=== PATIENT | female | born 1975 | race Asian ===

== ENCOUNTER 2017-03-12 11:51 | Inpatient (IN) | payer MEDICAID ==
[~2017-03-12] VITALS: Ht 165.1 cm; Wt 77.6 kg
[~2017-03-12 11:51] MED LIST: METF10002 PO
[2017-03-12] MEDS ORDERED: KETOROLAC 30MG/ML VIAL IV ONE (12:45)
[2017-03-12 13:01] LABS: BASOPHILS % 0.7 % (0.0-2.0); EOSINOPHILS % 1.9 % (0.0-5.0); HEMATOCRIT. 35.4 % (36.0-48.0); HEMOGLOBIN. 11.5 g/dL (12.0-16.0); LYMPHOCYTES % 18.5 % (20.0-50.0); MEAN CORPUSCULAR HEMOGLOBIN 19.1 pg (28.0-32.0); MEAN CORPUSCULAR VOLUME 58.6 fL (81.0-99.0); MEAN PLATELET VOLUME 9.5 fl (7.4-10.4); MONOCYTES % 6.9 % (2.0-8.0); PLATELET 210 x1000/uL (130-400); RED BLOOD CELL COUNT 6.04 mill/uL (4.2-5.4)
[2017-03-12 13:04] LABS: CHLORIDE 99 mEq/L (98-107); INR 1.1; PROTHROMBIN TIME 11.4 sec
[2017-03-12 13:14] LABS: CARBON DIOXIDE 25 mEq/L (21-32); TROPONIN I < 0.02 ng/mL (0.00-0.04)
[2017-03-12 13:46] LABS: PLATELET ESTIMATE NORMAL
[2017-03-12] MEDS ORDERED: POTASSIUM CHLORIDE 20MEQ TABLET SR PO NR (14:45)
[2017-03-12] MEDS ORDERED: LORAZEPAM 2MG/ML CPJ IV PRN (16:30)
[2017-03-12] MEDS ORDERED: CLONIDINE 0.1MG TABLET PO PRN (16:30)
[2017-03-12] MEDS ORDERED: MAGNESIUM/ALUMINUM HYDROXIDE/SIMETHICONE 30ML UDC PO PRN (16:30)
[2017-03-12] MEDS ORDERED: NA PHOS,M-B/NA PHOS,DI-BA ENEMA 118ML PR PRN (16:30)
[2017-03-12] MEDS ORDERED: IPRATROPIUM/ALBUTEROL 0.5-3(2.5)MG/3ML NEB INH PRN (16:30)
[2017-03-12] MEDS ORDERED: DIPHENHYDRAMINE 50MG/ML VIAL IV PRN (16:30)
[2017-03-12] MEDS ORDERED: DOCUSATE SODIUM 100MG CAPSULE PO PRN (16:30)
[2017-03-12] MEDS ORDERED: KCL 10MEQ/50ML PREMIX 50 ML IV NR (16:30)
[2017-03-12 16:54] LABS: CARBON DIOXIDE 24 mEq/L (21-32); CHLORIDE 101 mEq/L (98-107)
[2017-03-12 20:00] VITALS: BP 115/63
[2017-03-12] MEDS: ENOXAPARIN 40MG/0.4ML SYR SUBCUT SCH (21:38)
[2017-03-12] MEDS: GUAIFENESIN 200MG/10ML SUGAR FREE UDC PO PRN (21:38)
[2017-03-12] MEDS: HYDROCODONE/ACETAMINOPHEN 5/325MG TABLET PO PRN (21:39)
[2017-03-13] VITALS: BP 97/50
[2017-03-13] MEDS ORDERED: IBUP-1509 PO (02:40)
[2017-03-13 04:00] VITALS: BP 105/56
[2017-03-13] MEDS: GUAIFENESIN 200MG/10ML SUGAR FREE UDC PO PRN (06:09)
[2017-03-13] MEDS: HYDROMORPHONE HCL/PF 2MG/ML CPJ IV PRN ×2 (06:10→08:40)
[2017-03-13 06:13] LABS: CARBON DIOXIDE 24 mEq/L (21-32); CHLORIDE 101 mEq/L (98-107); HDL CHOLESTEROL 30 mg/dL (40-59); LDL CHOLESTEROL 102 mg/dL (5-100); T4 FREE 1.15 ng/dL (0.76-1.46); TROPONIN I < 0.02 ng/mL (0.00-0.04)
[2017-03-13 06:22] LABS: BASOPHILS % 0.5 % (0.0-2.0); EOSINOPHILS % 1.5 % (0.0-5.0); HEMOGLOBIN. 10.6 g/dL (12.0-16.0); LYMPHOCYTES % 21.2 % (20.0-50.0); MEAN CORPUSCULAR HEMOGLOBIN 19.3 pg (28.0-32.0); MEAN CORPUSCULAR VOLUME 58.3 fL (81.0-99.0); NEUTROPHILS % 68.8 % (40.0-76.0); PLATELET 204 x1000/uL (130-400); RED BLOOD CELL COUNT 5.49 mill/uL (4.2-5.4); RED CELL DISTRIBUTION WIDTH 16.9 % (11.6-14.6)
[2017-03-13] MEDS: BLOOD SUGAR DIAGNOSTIC STRIP TEST SCH ×4 (07:40→21:00)
[2017-03-13] MEDS ORDERED: DEXTROSE 50% WATER 50ML SYRINGE IV PRN (07:45)
[2017-03-13 08:00] VITALS: BP 97/57
[2017-03-13] MEDS ORDERED: REGADENOSON 0.4 MG/5 ML IV ONE ×2 (08:00→09:31)
[2017-03-13] MEDS: INSULIN LISPRO 100 UNITS/ML SUBCUT SCH ×4 (08:10→22:26)
[2017-03-13] MEDS: ASPIRIN 81MG EC TABLET PO SCH (08:19)
[2017-03-13] MEDS: ONDANSETRON HCL 4MG/2ML VIAL IV PRN (08:40)
[2017-03-13 11:01] LABS: CLARITY URINE CLEAR (CLEAR); COLOR URINE YELLOW (YELLOW); GLUCOSE URINE 3+ (NEGATIVE); KETONES URINE 2+ (NEGATIVE); LEUKOCYTE ESTERASE URINE NEGATIVE (NEGATIVE); NITRITE URINE NEGATIVE (NEGATIVE); OCCULT BLOOD URINE NEGATIVE (NEGATIVE); PROTEIN URINE NEGATIVE (NEGATIVE); SPECIFIC GRAVITY URINE 1.022 (1.005-1.030); UROBILINOGEN URINE 0.2 E.U./dL (0.2-1.0)
[2017-03-13] MEDS: LEVOFLOXACIN 500MG PREMIX 100 ML IV SCH (11:06)
[2017-03-13 12:00] VITALS: BP 116/63
[2017-03-13 15:48] VITALS: BP 108/60
[2017-03-13 19:44] VITALS: BP 119/68
[2017-03-13] MEDS: HYDROCODONE/ACETAMINOPHEN 5/325MG TABLET PO PRN (19:46)
[2017-03-13] MEDS: ENOXAPARIN 40MG/0.4ML SYR SUBCUT SCH (22:25)
[2017-03-14] VITALS (7 sets, daily range): BP systolic 104–118; BP diastolic 60–94
[2017-03-14] MEDS: HYDROCODONE/ACETAMINOPHEN 5/325MG TABLET PO PRN ×3 (00:48→21:12)
[2017-03-14] MEDS: BLOOD SUGAR DIAGNOSTIC STRIP TEST SCH ×4 (07:40→23:29)
[2017-03-14] MEDS: HYDROMORPHONE HCL/PF 2MG/ML CPJ IV PRN ×2 (10:00→16:13)
[2017-03-14] MEDS: LEVOFLOXACIN 500MG PREMIX 100 ML IV SCH (10:01)
[2017-03-14] MEDS: ONDANSETRON HCL 4MG/2ML VIAL IV PRN ×2 (10:01→16:12)
[2017-03-14 10:12] LABS: HEMATOCRIT 35.1 % (36.0-48.0); HEMOGLOBIN 11.3 g/dL (12.0-16.0); MEAN CORPUSCULAR VOLUME 58.8 fL (81.0-99.0); PLATELET 213 x1000/uL (130-400); RED BLOOD CELL COUNT 5.96 mill/uL (4.2-5.4)
[2017-03-14] MEDS: ASPIRIN 81MG EC TABLET PO SCH (10:15)
[2017-03-14] MEDS: INSULIN LISPRO 100 UNITS/ML SUBCUT SCH ×4 (10:16→23:30)
[2017-03-14 10:25] LABS: CARBON DIOXIDE 25 mEq/L (21-32); CHLORIDE 98 mEq/L (98-107)
[2017-03-14] MEDS: SODIUM CHLORIDE 0.45% 1,000 ML IV SCH (18:44)
[2017-03-14] MEDS: ACETAMINOPHEN 325MG TABLET PO PRN ×2 (18:44→21:12)
[2017-03-14] MEDS: ENOXAPARIN 40MG/0.4ML SYR SUBCUT SCH (23:28)
[2017-03-15] VITALS: BP 96/54
[2017-03-15 04:00] VITALS: BP 112/81
[2017-03-15] MEDS: HYDROMORPHONE HCL/PF 2MG/ML CPJ IV PRN ×2 (04:45→10:02)
[2017-03-15] MEDS: ONDANSETRON HCL 4MG/2ML VIAL IV PRN (04:45)
[2017-03-15 05:58] LABS: CHLORIDE 96 mEq/L (98-107)
[2017-03-15 06:08] LABS: CARBON DIOXIDE 25 mEq/L (21-32)
[2017-03-15 06:19] LABS: BASOPHILS % 0.7 % (0.0-2.0); EOSINOPHILS % 2.8 % (0.0-5.0); HEMATOCRIT. 33.3 % (36.0-48.0); HEMOGLOBIN. 10.9 g/dL (12.0-16.0); LYMPHOCYTES % 26.7 % (20.0-50.0); MEAN CORPUSCULAR HEMOGLOBIN 19.2 pg (28.0-32.0); MEAN CORPUSCULAR VOLUME 58.6 fL (81.0-99.0); MEAN PLATELET VOLUME 9.3 fl (7.4-10.4); MONOCYTES % 8.2 % (2.0-8.0); NEUTROPHILS % 61.6 % (40.0-76.0); PLATELET 212 x1000/uL (130-400); RED BLOOD CELL COUNT 5.67 mill/uL (4.2-5.4); RED CELL DISTRIBUTION WIDTH 16.9 % (11.6-14.6)
[2017-03-15] MEDS: BLOOD SUGAR DIAGNOSTIC STRIP TEST SCH ×4 (07:40→20:42)
[2017-03-15 08:00] VITALS: BP 112/69
[2017-03-15] MEDS ORDERED: SODIUM CHLORIDE 0.9% 10ML VIAL ONE (09:18)
[2017-03-15] MEDS ORDERED: IOHEXOL-300 100 ML BOTTLE ONE (09:18)
[2017-03-15] MEDS: ASPIRIN 81MG EC TABLET PO SCH (10:01)
[2017-03-15] MEDS: LEVOFLOXACIN 500MG PREMIX 100 ML IV SCH (10:02)
[2017-03-15] MEDS: SODIUM CHLORIDE 0.45% 1,000 ML IV SCH (10:02)
[2017-03-15] MEDS ORDERED: POTASSIUM CHLORIDE 20MEQ TABLET SR PO NR (10:15)
[2017-03-15] MEDS: INSULIN LISPRO 100 UNITS/ML SUBCUT SCH ×4 (10:20→20:54)
[2017-03-15 12:00] VITALS: BP 118/71
[2017-03-15 15:54] LABS: HCG SCREEN NEGATIVE
[2017-03-15 16:00] VITALS: BP 109/67
[2017-03-15] MEDS: ACETAMINOPHEN 325MG TABLET PO PRN (18:17)
[2017-03-15 20:00] VITALS: BP 108/72
[2017-03-15] MEDS: ENOXAPARIN 40MG/0.4ML SYR SUBCUT SCH (20:54)
[2017-03-16] VITALS: BP 90/59
[2017-03-16] MEDS: GUAIFENESIN 200MG/10ML SUGAR FREE UDC PO PRN ×2 (02:19→09:19)
[2017-03-16 04:00] VITALS: BP 101/55
[2017-03-16 06:56] LABS: EOSINOPHILS % 3.8 % (0.0-5.0); HEMATOCRIT. 31.3 % (36.0-48.0); HEMOGLOBIN. 10.2 g/dL (12.0-16.0); LYMPHOCYTES % 22.6 % (20.0-50.0); MEAN CORPUSCULAR HEMOGLOBIN 19.1 pg (28.0-32.0); MEAN CORPUSCULAR VOLUME 58.4 fL (81.0-99.0); MEAN PLATELET VOLUME 9.4 fl (7.4-10.4); MONOCYTES % 7.9 % (2.0-8.0); NEUTROPHILS % 64.7 % (40.0-76.0); PLATELET 207 x1000/uL (130-400); RED BLOOD CELL COUNT 5.35 mill/uL (4.2-5.4)
[2017-03-16 07:22] LABS: CHLORIDE 100 mEq/L (98-107)
[2017-03-16 07:27] LABS: CARBON DIOXIDE 23 mEq/L (21-32)
[2017-03-16] MEDS: BLOOD SUGAR DIAGNOSTIC STRIP TEST SCH ×2 (07:40→12:40)
[2017-03-16 08:00] VITALS: BP 103/66
[2017-03-16] MEDS: ASPIRIN 81MG EC TABLET PO SCH (09:12)
[2017-03-16] MEDS: HYDROCODONE/ACETAMINOPHEN 5/325MG TABLET PO PRN (09:14)
[2017-03-16] MEDS: INSULIN LISPRO 100 UNITS/ML SUBCUT SCH ×2 (09:15→13:52)
[2017-03-16] MEDS: LEVOFLOXACIN 500MG PREMIX 100 ML IV SCH (10:16)
[2017-03-16 12:00] VITALS: BP 105/71
[2017-03-16 13:40] VITALS: BP 105/71
== END 2017-03-16 14:10 | disposition home or self-care (01) | DRG 243 ==
LOC: ER 12:55 → 7WST 16:06 → ENRESERV 17:54
PROVIDERS: ADMIT Internal Medicine; ATTEND Internal Medicine
DX: K21.9 Gastro-esophageal reflux disease without esophagitis (principal); E87.1 Hypo-osmolality and hyponatremia; I10 Essential (primary) hypertension; E87.6 Hypokalemia; E11.9 Type 2 diabetes mellitus without complications; D50.9 Iron deficiency anemia, unspecified; I25.10 Atherosclerotic heart disease of native coronary artery without angina pectoris; Z79.84 Long term (current) use of oral hypoglycemic drugs; Z95.0 Presence of cardiac pacemaker; Z95.5 Presence of coronary angioplasty implant and graft
CPT/HCPCS: 36415; 71010; 71260; 74177; 76700; 78452; 80048; 80053; 80061; 81001; 81025; 82962; 83605; 83690; 83735; 83880; 84146; 84439; 84443; 84484; 84703; 85025; 85027; 85379; 85610; 87040; 87086; 93005; 93017; 93306; 96372; 96374; 99285; A4216; A9500; J1170; J1650; J1815; J1885; J1956; J2405; J2785; J7050; Q9967